=== PATIENT | male | born 1955 | race Caucasian/White ===

== ENCOUNTER 2017-02-23 10:26 | Emergency (ER) | payer MEDICAID, OTHER ==
[~2017-02-23] VITALS: Ht 172.7 cm; Wt 75.0 kg
[~2017-02-23 10:26] MED LIST: DIAZ10TA PO; FLUO20TA20 PO; LANSO15 PO; MORP15TA3 PO
[2017-02-23 10:27] VITALS: BP 165/100; PULSE 90; RESP 20; TEMP 98.3; O2SAT 95
[2017-02-23] MEDS ORDERED: HYDR25TA5 PO ×2 (10:38)
[2017-02-23] MEDS ORDERED: IBUP-1133 ×2 (10:38)
[2017-02-23] MEDS ORDERED: SODIUM CHLORIDE 0.9% FLUSH 10 ML FLUSH IVF PRN ×2 (11:00)
[2017-02-23] MEDS ORDERED: methylPREDNISolone SOD SUCC 125 MG/2 ML VIAL IV PUSH ONE ×2 (11:00)
[2017-02-23] MEDS ORDERED: KETOROLAC TROMETHAMINE 30 MG/ML (IVP) VIAL IV PUSH ONE ×4 (11:00→12:45)
[2017-02-23] MEDS ORDERED: SODIUM CHLOR 0.9% 1000 ML INJ 1,000 ML IV ONE ×2 (11:00)
[2017-02-23 11:04] VITALS: O2SAT 97
[2017-02-23] MEDS: RESP: ALBUTEROL 2.5 MG/IPRATROPIUM 0.5 MG NEB (SCH) INH ×4 (11:08→11:09)
--- NOTE | 2017-02-23 11:23 | PD ---
HPI Chief Complaint: Cold / Flu Symptoms Time Seen by Provider: 10:49 Travel History International Travel<30 days: No Contact w/Intl Traveler<30days: No Traveled to known affect area: No History of Present Illness HPI Patient is a 61-year-old male who presents to the ER with multiple complaints. Patient reports that for the past week, he has had increased cough/congestion and wheezing. Reports that he feels "achy" all over. Reports that he has been experiencing low-grade fevers with MAXIMUM TEMPERATURE around 100.0. He did not have the flu vaccine this year. He reports no recent travels/trips. Reports that when he coughs, he is brining up thick yellow phlegm. Patient reports that he is having increased chest tightness with his symptoms. Patient denies any diaphoresis or cardiac chest pain. Reports "my chest feels tight and it hurts when I cough." Patient denies any history of PE or DVT. Patient reports that the only medication he takes at this time is hydrochlorothiazide. Patient is a smoker PFSH Past Medical History Arthritis: No Asthma: No Autoimmune Disease: No Blood Disorders: No Anxiety: Yes Depression: Yes Heart Rhythm Problems: No Cancer: No Cardiovascular Problems: No High Cholesterol: No Chemotherapy: No Chest Pain: No Congestive Heart Failure: No COPD: No Cerebrovascular Accident: No Diminished Hearing: No GERD: Yes Glaucoma: No Genitourinary: No Headaches: No Hypertension: Yes Kidney Stones: No Musculoskeletal: Yes (DEGENERATIVE DISC) Neurologic: No Psychiatric: Yes Reproductive: No Respiratory: No Myocardial Infarction: No Radiation Therapy: No Renal Failure: No Seizures: No Sickle Cell Disease: No Sleep Apnea: No Past Surgical History Abdominal Surgery: No AICD: No Cardiac Surgery: No Endocrine Surgery: No Eye Surgery: No Genitourinary Surgery: No Gynecologic Surgery: No Pacemaker: No Thoracic Surgery: No Social History Alcohol Use: No Tobacco Use: Yes (OCC) Substance Use: No Allergies-Medications (Allergen,Severity, Reaction): Coded Allergies: No Known Allergies (Verified Allergy, Severe, 02/23/17) Reported Meds & Prescriptions Reported Meds & Active Scripts Active Reported Motrin Pm Caplet (Ibuprofen/Diphenhydramine Cit) 200 Mg-38 Mg Tablet 800 BID Hydrochlorothiazide 25 Mg Tab 25 Mg PO DAILY Review of Systems General / Constitutional: No: Fever, Chills Eyes: No: Visual changes HENT: Positive: Congestion, No: Headaches, Lightheadedness, Sore Throat, Neck Stiffness, Neck Pain, Masses Cardiovascular: No: Chest Pain or Discomfort, Palpitations, Irregular Rhythm, Tachycardia Respiratory: Positive: Cough, Shortness of Breath, Wheezing Gastrointestinal: No: Abdominal Pain Genitourinary: No: Dysuria Musculoskeletal: No: Pain Skin: No Rash Neurologic: No: Weakness Psychiatric: No: Depression Endocrine: No: Polydipsia Hematologic/Lymphatic: No: Easy Bruising Physical Exam Narrative GENERAL: mild distress SKIN: Focused skin assessment warm/dry. HEAD: Atraumatic. Normocephalic. EYES: Pupils equal and round. No scleral icterus. No injection or drainage. ENT: No nasal bleeding or discharge. Mucous membranes pink and moist. NECK: Trachea midline. No JVD. CARDIOVASCULAR: Regular rate and rhythm. No murmur appreciated. RESPIRATORY: No accessory muscle use. Patient with scattered and diffuse wheezing on exam GASTROINTESTINAL: Abdomen soft, non-tender, nondistended. Hepatic and splenic margins not palpable. MUSCULOSKELETAL: No obvious deformities. No clubbing. No cyanosis. No edema. NEUROLOGICAL: Awake and alert. No obvious cranial nerve deficits. Motor grossly within normal limits. Normal speech. PSYCHIATRIC: Appropriate mood and affect; insight and judgment normal. Data Data Last Documented VS Vital Signs Date Time Temp Pulse Resp B/P (MAP) Pulse Ox O2 Delivery O2 Flow Rate FiO2 02/23/17 11:04 97 Room Air 02/23/17 10:27 98.3 90 20 Orders Orders Electrocardiogram (02/23/17 ) Complete Blood Count With Diff (02/23/17 11:00) Basic Metabolic Panel (Bmp) (02/23/17 11:00) B-Type Natriuretic Peptide (02/23/17 11:00) Act Partial Throm Time (Ptt) (02/23/17 11:00) Prothrombin Time / Inr (Pt) (02/23/17 11:00) Magnesium (Mg) (02/23/17 11:00) Influenzae A/B Antigen (02/23/17 11:00) Iv Access Insert/Monitor (02/23/17 11:00) Ecg Monitoring (02/23/17 11:00) Oximetry (02/23/17 11:00) Chest, Single Ap (02/23/17 11:00) Sodium Chloride 0.9% Flush (Ns Flush) (02/23/17 11:00) Methylprednisolone So Succ Inj (Solumedr (02/23/17 11:00) Albuterol-Ipratropium Neb (Duoneb Neb) (02/23/17 11:00) Sodium Chlor 0.9% 1000 Ml Inj (Ns 1000 M (02/23/17 11:00) Ketorolac Inj (Toradol Inj) (02/23/17 11:00) Ketorolac Inj (Toradol Inj) (02/23/17 12:45) Labs Laboratory Tests Test 02/23/17 11:00 White Blood Count 6.3 TH/MM3 Red Blood Count 4.84 MIL/MM3 Hemoglobin 14.9 GM/DL Hematocrit 43.5 % Mean Corpuscular Volume 90.1 FL Mean Corpuscular Hemoglobin 30.8 PG Mean Corpuscular Hemoglobin Concent 34.2 % Red Cell Distribution Width 13.9 % Platelet Count 258 TH/MM3 Mean Platelet Volume 7.5 FL Neutrophils (%) (Auto) 63.1 % Lymphocytes (%) (Auto) 21.8 % Monocytes (%) (Auto) 11.7 % Eosinophils (%) (Auto) 2.5 % Basophils (%) (Auto) 0.9 % Neutrophils # (Auto) 4.0 TH/MM3 Lymphocytes # (Auto) 1.4 TH/MM3 Monocytes # (Auto) 0.7 TH/MM3 Eosinophils # (Auto) 0.2 TH/MM3 Basophils # (Auto) 0.1 TH/MM3 CBC Comment DIFF FINAL Differential Comment Prothrombin Time 10.4 SEC Prothromb Time International Ratio 0.9 RATIO Activated Partial Thromboplast Time 27.1 SEC Blood Urea Nitrogen 10 MG/DL Creatinine 0.82 MG/DL Random Glucose 112 MG/DL Calcium Level 9.3 MG/DL Magnesium Level 2.1 MG/DL Sodium Level 134 MEQ/L Potassium Level 3.8 MEQ/L Chloride Level 101 MEQ/L Carbon Dioxide Level 23.5 MEQ/L Anion Gap 10 MEQ/L Estimat Glomerular Filtration Rate 95 ML/MIN B-Type Natriuretic Peptide 12 PG/ML MDM Medical Decision Making Medical Screen Exam Complete: Yes Emergency Medical Condition: Yes Medical Record Reviewed: Yes Interpretation(s) EKG at 1106: NSR at 84bpm, qt/qtc: 364/405, no acute st or t wave changes Vital Signs Date Time Temp Pulse Resp B/P (MAP) Pulse Ox O2 Delivery O2 Flow Rate FiO2 02/23/17 11:04 97 Room Air 02/23/17 10:38 96 Room Air 02/23/17 10:27 98.3 90 20 165/100 (121) 95 Room Air Differential Diagnosis viral syndrome, copd exacerbation, pneumonia, acs, arrhythmia, influenza Narrative Course During the course of the patients emergency department visit, the patients history, examination, and differential diagnosis were reviewed with the patient. The patient was placed on a radiographer cardiac catheterization with oximetry and frequent blood pressure monitoring. The patient had 20 gauge IV access obtained and blood work sent for analysis. The patient was initially provided IVF, IV solumedrol and Neb treatments EKG: NSR at 84bpm, qt/qtc: 364/405, no acute st or t wave changes The patients laboratory studies were reviewed and remarkable for CBC & BMP Diagram 02/23/17 11:00 Calcium Level 9.3, Magnesium Level 2.1 Influenza A& B negative Last Impressions Chest X-Ray 02/23/17 1100 Signed Impressions: Service Date/Time: Thursday, February 23, 2017 11:27 - CONCLUSION: 1. The lungs are clear. 2. Fractures of posterolateral left 5th and 6th ribs, age-indeterminate. Soto Quiros MD Radiology studies were reviewed and remarkable for pneumonia. Patient reports that he did have history of a left fifth and 6 fracture in the past, these are not acute fractures. EKG unremarkable, patient with no evidence of cardiac chest pain - chest pain most likely from cough/congestion. Patient with decreased wheezing at this time. Most likely acute bronchitis as he is feeling better after the nebulizer treatments. Discussed need for smoking cessation. We'll start him on antibiotics, steroids as well as give him a prescription Pro Air inhaler. Patient will follow-up with his primary care doctor and will return to emergency room if symptoms worsen or progress or he will return as needed Diagnosis Primary Impression: Bronchitis Additional Impression: Smoking 1/2 pack a day or less Patient Instructions: General Instructions Additional Instructions: Please provide patient with a copy of their lab work and studies at discharge* * Please follow up with your primary care doctor in 2-3 days Return to the ER if symptoms worsen or progress Return to the ER as needed Please take all antibiotics as prescribed Please stop smoking Med/Other Pt SpecificInfo: Prescription(s) given Scripts Ibuprofen (Ibuprofen) 600 Mg Tab 600 MG PO Q6H Y for Pain/Inflammation, #40 TAB 0 Refills Prov: Helen Blancas DO 02/23/17 Prednisone (Prednisone) 20 Mg Tab 20 MG PO BID for 5 Days, #10 TAB 0 Refills Prov: Helen Blancas DO 02/23/17 Albuterol 8.5 GM Inh (Proair Hfa 8.5 GM Inh) 90 Mcg/Act Aer 2 PUFF INH Q4-6H Y for SHORTNESS OF BREATH, #1 INHALER 0 Refills 108 mcg/actuation Prov: Helen Blancas DO 02/23/17 Azithromycin (Azithromycin) 500 Mg Tab 500 MG PO DAILY for Infection, #7 TAB 0 Refills Prov: Helen Blancas DO 02/23/17 Disposition: 01 DISCHARGE HOME Condition: Stable Helen Blancas DO Feb 23, 2017 11:23
[2017-02-23 11:36] LABS: BASOPHIL # 0.1 TH/MM3 (0-0.2); BASOPHIL % 0.9 % (0.0-2.0); EOSINOPHIL # 0.2 TH/MM3 (0-0.4); EOSINOPHIL % 2.5 % (0.0-4.0); HEMATOCRIT 43.5 % (39.0-51.0); HEMOGLOBIN 14.9 GM/DL (13.0-17.0); LYMPH % 21.8 % (9.0-44.0); LYMPHOCYTE # 1.4 TH/MM3 (1.0-4.8); MEAN CELL VOLUME 90.1 FL (80.0-100.0); MEAN CORPUSCULAR HEMOGLOBIN 30.8 PG (27.0-34.0); MEAN CORPUSCULAR HGB CONC 34.2 % (32.0-36.0); MEAN PLATELET VOLUME 7.5 FL (7.0-11.0); MONO % 11.7 % (0.0-8.0); MONOCYTE # 0.7 TH/MM3 (0-0.9); NEUT % 63.1 % (16.0-70.0); PLATELET COUNT 258 TH/MM3 (150-450); RED BLOOD COUNT 4.84 MIL/MM3 (4.50-5.90); RED CELL DISTRIBUTION WIDTH 13.9 % (11.6-17.2); WHITE BLOOD COUNT 6.3 TH/MM3 (4.0-11.0)
--- NOTE | 2017-02-23 11:38 | RADRPT ---
EXAM DATE/TIME: 02/23/2017 11:27 [facility] COMPARISON: No previous studies available for comparison. INDICATIONS : Short of breath x1 week, congestion. MEDICAL HISTORY : SURGICAL HISTORY : ENCOUNTER: Initial ACUITY: 1 week PAIN SCORE: 0/10 LOCATION: Bilateral chest FINDINGS: A single view of the chest demonstrates the lungs to be symmetrically aerated without evidence of mas s, infiltrate or effusion. No evidence of pneumothorax. The cardiomediastinal contours are unremark able. The hemidiaphragms are well delineated. Fractures of posterolateral left 5th and 6th ribs.. CONCLUSION: 1. The lungs are clear. 2. Fractures of posterolateral left 5th and 6th ribs, age-indeterminate. Soto Quiros MD on February 23, 2017 at 11:35 Board Certified Radiologist. This report was verified electronically.
[2017-02-23 11:48] LABS: INTERNATIONAL NORMALIZED RATIO 0.9 RATIO; PROTHROMBIN TIME - PATIENT 10.4 SEC (9.8-11.6)
[2017-02-23 11:54] LABS: BICARBONATE 23.5 MEQ/L (21.0-32.0); CALCIUM 9.3 MG/DL (8.5-10.1); CREATININE 0.82 MG/DL (0.60-1.30); MAGNESIUM 2.1 MG/DL (1.5-2.5)
[2017-02-23] MEDS ORDERED: PRED20 PO ×2 (12:53)
[2017-02-23] MEDS ORDERED: AZIT500T2 PO ×2 (12:53)
[2017-02-23] MEDS ORDERED: IBUP-232 PO ×2 (12:53)
[2017-02-23] MEDS ORDERED: ALBUAER3 INH ×2 (12:53)
[2017-02-23] MEDS ORDERED: BENZ100 PO ×2 (12:58)
[2017-02-23] MEDS ORDERED: PROM6.256 PO ×2 (12:59)
[2017-02-23] MEDS ORDERED: AZITHROMYCIN 250 MG TAB PO ONE ×2 (13:00)
[2017-02-23 13:05] VITALS: BP 147/84; PULSE 97; RESP 22; O2SAT 95
--- NOTE | 2017-02-23 18:10 | EKG ---
Date Performed: 02/23/2017 Time Performed: 11:06:46 PTAGE: 61 years EKG: Sinus rhythm NORMAL ECG Compared to prior tracing no significant change PREVIOUS TRACING : 07/23/2014 10.31 DOCTOR: Caitlin Godfrey Interpretating Date/Time 02/23/2017 18:09:26
== END 2017-02-23 13:38 | disposition home or self-care (01) ==
LOC: NEPD 10:26
DX: J40 Bronchitis, not specified as acute or chronic (principal); I10 Essential (primary) hypertension; K21.9 Gastro-esophageal reflux disease without esophagitis; R07.89 Other chest pain; R50.9 Fever, unspecified; Z72.0 Tobacco use
CPT/HCPCS: 71010; 80048; 83735; 83880; 85025; 85610; 85730; 87804; 93005; 94640; 94664; 96361; 96374; 96375; 96376; 99285; J1885; J2930; J7030